=== PATIENT | male | born 1940 | race African-American/Black ===

== ENCOUNTER 2017-06-29 15:57 | Inpatient (IN) ==
[2017-06-29 16:45] LABS: Basophils % 0.2 % (0.0-0.8); Eosinophils % 0.1 % (0.00-10.9); Hemoglobin 13.1 GM/DL (14.0-18.0); Immature Granulocytes % 0.9 %; Immature Granulocytes Absolute 0.14 #; Lymphocytes # 2.6 10*3/uL (1.4-4.0); Lymphocytes % 16.3 % (21.2-54.2); Mean Corpuscular HGB Conc 32.8 GM/DL (32-36); Mean Corpuscular Hemoglobin 28 PG (27-34); Mean Corpuscular Volume 84.4 FL (87-102); Mean Platelet Volume 9.6 FL (9.6-12.0); Monocytes # 1.1 10*3/uL (0.11-0.8); Monocytes % 6.8 % (1.7-12.7); Neutrophils % 75.7 % (38.7-73.9); Platelet Count 173 T/CUMM (130-400); Red Blood Count 4.74 MC/CUMM (3.8-5.5); Red Cell Distribution Width 14.6 % (9.3-17.3); White Blood Count 15.8 T/CUMM (4-12)
[2017-06-29 16:51] LABS: INR 2.1
[2017-06-29 16:54] LABS: PT Patient Result 21.9 SECS
[2017-06-29 17:00] LABS: Lactic Acid 2.7 MMOL/L (0.4-2.0)
[2017-06-29 17:09] LABS: Alanine Aminotransferase 30 U/L (16-61); Albumin 3.2 G/DL (3.4-5.0); Alkaline Phosphatase 112 U/L (45-117); Aspartate Amino Transferase 32 U/L (0-37); Blood Urea Nitrogen 11 MG/DL (7-18); Calcium 8.2 MG/DL (8.5-10.1); Glucose 112 MG/DL (74-106); Osmolality,Calculated 272.8 MOS/KG (273-304); Potassium 3.6 MMOL/L (3.5-5.1); Sodium 137 MMOL/L (136-145); Total Protein 6.6 G/DL (6.4-8.3); Troponin I Only < 0.015 NG/ML (0.00-0.045)
[2017-06-29 17:20] LABS: INR 2.1; Partial Thromboplastin Time 35.7 SECS (0-40)
[2017-06-29] MEDS ORDERED: LEVOFLOXACIN INJ 500 MG in PREMIX 1 EACH IV SCH (17:30)
[2017-06-29 17:45] LABS: PT Patient Result 21.8 SECS
[2017-06-29] MEDS ORDERED: LEVOFLOXACIN INJ 100 ML IV ONE (18:22)
[2017-06-29 18:37] LABS: Apearance,Urine CLOUDY (Clear); Bacteria,Urine Moderate /HPF (Few); Bilirubin,Urine Negative (Negative); Blood, Urine Moderate mg/dL (Negative); Glucose,Urine (UA) Negative (Negative); Ketones,Urine 20 mg/dL (Negative); Nitrite,Urine Positive (Negative); Protein,Urine 30 MG/DL; RBC,Urine 14 /HPF (0-4); Urine Color Amber (Yellow); Urine Specific Gravity 1.017 (1.001-1.035); Urine Urobilinogen < 2.0 EU/DL (0.2-1.0); WBC,Urine 972 /HPF (0-6)
[2017-06-29] MEDS ORDERED: SODIUM CHLORIDE 0.9% 1,000 ML IV STA (19:40)
[2017-06-29] MEDS ORDERED: ONDANSETRON 4 MG/2 ML VIAL IV PRN (21:00)
[2017-06-29 21:14] LABS: Lymphocytes 18 % (20-55); Segmented Neutrophils 75 % (50-85); Total Cells Counted 100
[2017-06-29 21:15] LABS: Platelet Estimate Normal
[2017-06-29] MEDS: SODIUM CHLORIDE 0.9% 1,000 ML IV SCH (21:34)
[2017-06-29] MEDS: DOCUSATE SODIUM 100 MG CAPSULE PO SCH (21:36)
[2017-06-29 23:07] LABS: INR 1.9; PT Patient Result 19.9 SECS
[2017-06-30] MEDS: ACETAMINOPHEN 325 MG TABLET PO PRN (03:49)
[2017-06-30] MEDS: MORPHINE 2 MG/1 ML SYRINGE IV PRN ×2 (04:30→23:30)
[2017-06-30] MEDS ORDERED: ALPRAZolam 0.25 MG TABLET ONE (04:55)
[2017-06-30] MEDS ORDERED: ALPRAZolam 0.5 MG TABLET PO ONE (05:30)
[2017-06-30 05:31] LABS: Hematocrit 36.3 VOL% (42.0-52.0); Hemoglobin 11.9 GM/DL (14.0-18.0); Lymphocytes # 0.8 10*3/uL (1.4-4.0); Lymphocytes % 49.3 % (21.2-54.2); Mean Corpuscular HGB Conc 32.8 GM/DL (32-36); Mean Corpuscular Hemoglobin 28 PG (27-34); Monocytes % 1.3 % (1.7-12.7); Neutrophils # 0.8 10*3/uL (1.4-7.4); Neutrophils % 49.4 % (38.7-73.9); Platelet Count 125 T/CUMM (130-400); Red Blood Count 4.27 MC/CUMM (3.8-5.5); Red Cell Distribution Width 14.6 % (9.3-17.3); White Blood Count 1.5 T/CUMM (4-12)
[2017-06-30 05:50] LABS: Albumin 2.8 G/DL (3.4-5.0); Bilirubin,Total 2.9 MG/DL (0.2-1.0); Calcium 7.8 MG/DL (8.5-10.1); Lactic Acid 3.7 MMOL/L (0.4-2.0); Osmolality,Calculated 271.8 MOS/KG (273-304); Potassium 3.8 MMOL/L (3.5-5.1); Total Protein 5.8 G/DL (6.4-8.3)
[2017-06-30 05:53] LABS: Risk Ratio 2.5; VLDL CHOLESTEROL 14.8 MG/DL
[2017-06-30] MEDS ORDERED: MAGNESIUM SULF RIDER 2 GM in PREMIX 1 EACH IV PRN (06:01)
[2017-06-30] MEDS: SODIUM CHLORIDE 0.9% 1,000 ML IV SCH ×2 (06:01→20:48)
[2017-06-30] MEDS ORDERED: MAGNESIUM SULF RIDER 4 GM in PREMIX 1 EACH IV PRN (06:01)
[2017-06-30 06:07] LABS: Band Neutrophils 4 % (0-10); Burr Cells Few; Lymphocytes 55 % (20-55); Platelet Estimate Normal; Segmented Neutrophils 39 % (50-85); Total Cells Counted 100
[2017-06-30 06:51] LABS: Basophils % 0.1 % (0.0-0.8); Hematocrit 33.5 VOL% (42.0-52.0); Hemoglobin 11.5 GM/DL (14.0-18.0); Immature Granulocytes % 0.7 %; Immature Granulocytes Absolute 0.05 #; Lymphocytes # 0.5 10*3/uL (1.4-4.0); Lymphocytes % 7.4 % (21.2-54.2); Mean Corpuscular HGB Conc 34.3 GM/DL (32-36); Mean Corpuscular Hemoglobin 29 PG (27-34); Mean Corpuscular Volume 83.1 FL (87-102); Mean Platelet Volume 9.8 FL (9.6-12.0); Monocytes # 0.1 10*3/uL (0.11-0.8); Monocytes % 1.3 % (1.7-12.7); Neutrophils # 6.5 10*3/uL (1.4-7.4); Neutrophils % 90.5 % (38.7-73.9); Platelet Count 132 T/CUMM (130-400); Red Blood Count 4.03 MC/CUMM (3.8-5.5); Red Cell Distribution Width 14.8 % (9.3-17.3); White Blood Count 7.1 T/CUMM (4-12)
[2017-06-30 07:21] LABS: Lymphocytes 13 % (20-55); Platelet Estimate Decreased; Segmented Neutrophils 87 % (50-85); Total Cells Counted 100
[2017-06-30] MEDS ORDERED: FLUTICASONE 50 MCG NASAL SPRAY 16 GM BOTTLE BOTH NARES PRN (07:36)
[2017-06-30] MEDS ORDERED: METOPROLOL TARTRATE 25 MG TABLET PO SCH (09:00)
[2017-06-30] MEDS ORDERED: LOSARTAN 50 MG TABLET PO SCH (09:00)
[2017-06-30] MEDS ORDERED: amLODIPine 5 MG TABLET PO SCH (09:00)
[2017-06-30] MEDS: cefTRIAXone 1,000 MG in SYRINGE 1 EACH IV SCH (09:21)
[2017-06-30] MEDS: PANTOPRAZOLE 40 MG VIAL IV SCH (09:25)
[2017-06-30] MEDS: TAMSULOSIN 0.4 MG CAPSULE PO SCH ×2 (09:27→20:49)
[2017-06-30] MEDS: LEVOFLOXACIN INJ 500 MG in PREMIX 1 EACH IV SCH (09:28)
[2017-06-30] MEDS: DOCUSATE SODIUM 100 MG CAPSULE PO SCH ×2 (10:17→20:51)
[2017-06-30] MEDS ORDERED: ALBUTEROL/IPRATROPIUM 3 ML NEB RESP TX PRN (12:44)
[2017-06-30] MEDS: WARFARIN 5 MG TABLET PO SCH (17:30)
[2017-06-30 17:31] LABS: Apearance,Urine CLEAR (Clear); Bilirubin,Urine Negative (Negative); Blood, Urine Small mg/dL (Negative); Glucose,Urine (UA) Negative (Negative); Ketones,Urine Negative (Negative); Mucus,Urine Occasional /LPF (Occasional); Nitrite,Urine Negative (Negative); Protein,Urine Negative; RBC,Urine 1 /HPF (0-4); Urine Color Yellow (Yellow); Urine Specific Gravity 1.006 (1.001-1.035); Urine Urobilinogen < 2.0 EU/DL (0.2-1.0); WBC,Urine 9 /HPF (0-6)
[2017-06-30] MEDS: ALPRAZolam 0.25 MG TABLET PO PRN (20:49)
[2017-07-01] MEDS: MORPHINE 2 MG/1 ML SYRINGE IV PRN (00:30)
[2017-07-01] MEDS: SODIUM CHLORIDE 0.9% 1,000 ML IV SCH ×2 (01:00→18:20)
[2017-07-01 05:23] LABS: Basophils % 0.2 % (0.0-0.8); Eosinophils % 0.1 % (0.00-10.9); Hematocrit 37.6 VOL% (42.0-52.0); Hemoglobin 12.9 GM/DL (14.0-18.0); Immature Granulocytes % 0.8 %; Immature Granulocytes Absolute 0.11 #; Lymphocytes # 0.8 10*3/uL (1.4-4.0); Lymphocytes % 6.3 % (21.2-54.2); Mean Corpuscular HGB Conc 34.3 GM/DL (32-36); Mean Corpuscular Hemoglobin 29 PG (27-34); Mean Corpuscular Volume 83.7 FL (87-102); Mean Platelet Volume 9.5 FL (9.6-12.0); Monocytes # 0.9 10*3/uL (0.11-0.8); Monocytes % 6.8 % (1.7-12.7); Neutrophils # 11.1 10*3/uL (1.4-7.4); Neutrophils % 85.8 % (38.7-73.9); Platelet Count 151 T/CUMM (130-400); Red Blood Count 4.49 MC/CUMM (3.8-5.5); Red Cell Distribution Width 14.9 % (9.3-17.3)
[2017-07-01 05:47] LABS: Osmolality,Calculated 270.2 MOS/KG (273-304); Potassium 4.2 MMOL/L (3.5-5.1)
[2017-07-01 05:51] LABS: INR 1.5; PT Patient Result 15.9 SECS
[2017-07-01 06:41] LABS: Band Neutrophils 1 % (0-10); Eosinophils 1 % (0-10); Lymphocytes 5 % (20-55); Segmented Neutrophils 86 % (50-85); Total Cells Counted 100
[2017-07-01 06:42] LABS: Hypochromasia 1+; Platelet Estimate Adequate
[2017-07-01] MEDS: LEVOFLOXACIN INJ 500 MG in PREMIX 1 EACH IV SCH (09:04)
[2017-07-01] MEDS: PANTOPRAZOLE 40 MG VIAL IV SCH (09:05)
[2017-07-01] MEDS: TAMSULOSIN 0.4 MG CAPSULE PO SCH ×3 (09:05→21:27)
[2017-07-01] MEDS: DOCUSATE SODIUM 100 MG CAPSULE PO SCH ×3 (09:05→21:27)
[2017-07-01] MEDS: cefTRIAXone 1,000 MG in SYRINGE 1 EACH IV SCH (09:07)
[2017-07-01] MEDS: WARFARIN 5 MG TABLET PO SCH (17:17)
[2017-07-01] MEDS: ACETAMINOPHEN 325 MG TABLET PO PRN (17:17)
[2017-07-01] MEDS: CARBOXYMETHYLCELLULOSE 1% OPH SOLN BOTH EYES SCH (18:17)
[2017-07-01] MEDS: ALPRAZolam 0.25 MG TABLET PO PRN (21:27)
[2017-07-02 04:41] LABS: Basophils % 0.4 % (0.0-0.8); Eosinophils # 0.1 10*3/uL (0.0-0.87); Eosinophils % 1.2 % (0.00-10.9); Hematocrit 35.1 VOL% (42.0-52.0); Hemoglobin 11.6 GM/DL (14.0-18.0); Immature Granulocytes % 0.4 %; Immature Granulocytes Absolute 0.03 #; Lymphocytes # 0.9 10*3/uL (1.4-4.0); Lymphocytes % 11.4 % (21.2-54.2); Mean Corpuscular Hemoglobin 28 PG (27-34); Mean Corpuscular Volume 84.4 FL (87-102); Monocytes # 0.7 10*3/uL (0.11-0.8); Neutrophils % 77.6 % (38.7-73.9); Platelet Count 138 T/CUMM (130-400); Red Blood Count 4.16 MC/CUMM (3.8-5.5); Red Cell Distribution Width 14.8 % (9.3-17.3); White Blood Count 7.8 T/CUMM (4-12)
[2017-07-02 04:46] LABS: INR 1.6; PT Patient Result 16.4 SECS
[2017-07-02 05:05] LABS: Calcium 7.8 MG/DL (8.5-10.1); Osmolality,Calculated 277.4 MOS/KG (273-304); Potassium 3.9 MMOL/L (3.5-5.1)
[2017-07-02 05:09] LABS: Albumin 2.2 G/DL (3.4-5.0); Band Neutrophils 1 % (0-10); Bilirubin,Total 0.8 MG/DL (0.2-1.0); Calcium 7.9 MG/DL (8.5-10.1); Eosinophils 2 % (0-10); Lymphocytes 20 % (20-55); Osmolality,Calculated 275.5 MOS/KG (273-304); Platelet Estimate Normal; Potassium 3.9 MMOL/L (3.5-5.1); Segmented Neutrophils 71 % (50-85); Total Cells Counted 100; Total Protein 5.4 G/DL (6.4-8.3)
[2017-07-02 05:10] LABS: Atypical Lymphocytes Few
[2017-07-02] MEDS: LEVOFLOXACIN INJ 500 MG in PREMIX 1 EACH IV SCH (08:50)
[2017-07-02] MEDS: TAMSULOSIN 0.4 MG CAPSULE PO SCH ×2 (08:50→21:00)
[2017-07-02] MEDS: DOCUSATE SODIUM 100 MG CAPSULE PO SCH ×2 (08:50→20:59)
[2017-07-02] MEDS: PANTOPRAZOLE 40 MG VIAL IV SCH (08:50)
[2017-07-02] MEDS: SODIUM CHLORIDE 0.9% 1,000 ML IV SCH (13:03)
[2017-07-02] MEDS: ACETAMINOPHEN 325 MG TABLET PO PRN (17:19)
[2017-07-02] MEDS: WARFARIN 5 MG TABLET PO SCH (17:20)
[2017-07-02] MEDS: CARBOXYMETHYLCELLULOSE 1% OPH SOLN BOTH EYES SCH (18:27)
[2017-07-02] MEDS: ALPRAZolam 0.25 MG TABLET PO PRN (21:03)
[2017-07-03] MEDS: ACETAMINOPHEN 325 MG TABLET PO PRN ×3 (03:43→18:07)
[2017-07-03 04:59] LABS: Basophils % 0.3 % (0.0-0.8); Eosinophils # 0.1 10*3/uL (0.0-0.87); Eosinophils % 1.7 % (0.00-10.9); Hematocrit 34.9 VOL% (42.0-52.0); Hemoglobin 11.6 GM/DL (14.0-18.0); Immature Granulocytes % 0.5 %; Immature Granulocytes Absolute 0.04 #; Lymphocytes # 0.8 10*3/uL (1.4-4.0); Mean Corpuscular HGB Conc 33.2 GM/DL (32-36); Mean Corpuscular Hemoglobin 28 PG (27-34); Mean Corpuscular Volume 83.1 FL (87-102); Mean Platelet Volume 9.6 FL (9.6-12.0); Monocytes # 0.9 10*3/uL (0.11-0.8); Monocytes % 11.3 % (1.7-12.7); Neutrophils # 5.8 10*3/uL (1.4-7.4); Neutrophils % 76.2 % (38.7-73.9); Platelet Count 136 T/CUMM (130-400); Red Cell Distribution Width 14.6 % (9.3-17.3); White Blood Count 7.6 T/CUMM (4-12)
[2017-07-03 05:06] LABS: INR 1.5; PT Patient Result 15.2 SECS
[2017-07-03 05:23] LABS: Calcium 7.6 MG/DL (8.5-10.1); Osmolality,Calculated 273.7 MOS/KG (273-304); Potassium 3.6 MMOL/L (3.5-5.1)
[2017-07-03 05:27] LABS: Lymphocytes 13 % (20-55); Platelet Estimate Normal; Segmented Neutrophils 80 % (50-85); Total Cells Counted 100
[2017-07-03] MEDS: PANTOPRAZOLE 40 MG VIAL IV SCH (09:43)
[2017-07-03] MEDS: LEVOFLOXACIN INJ 500 MG in PREMIX 1 EACH IV SCH (09:43)
[2017-07-03] MEDS: TAMSULOSIN 0.4 MG CAPSULE PO SCH ×2 (09:43→20:33)
[2017-07-03] MEDS: DOCUSATE SODIUM 100 MG CAPSULE PO SCH ×2 (09:43→20:33)
[2017-07-03] MEDS: SODIUM CHLORIDE 0.9% 1,000 ML IV SCH (09:45)
[2017-07-03] MEDS: traMADol 50 MG TABLET PO PRN ×2 (11:40→19:45)
[2017-07-03] MEDS: LOSARTAN 50 MG TABLET PO SCH (18:08)
[2017-07-03] MEDS: WARFARIN 5 MG TABLET PO SCH (18:48)
[2017-07-03] MEDS: CARBOXYMETHYLCELLULOSE 1% OPH SOLN BOTH EYES SCH (20:33)
[2017-07-03] MEDS: METOPROLOL TARTRATE 25 MG TABLET PO SCH (20:33)
[2017-07-04] MEDS: SODIUM CHLORIDE 0.9% 1,000 ML IV SCH ×2 (06:17→13:40)
[2017-07-04] MEDS ORDERED: LIDOCAINE 2% TOP JELLY 20 ML VIAL INTRAURETH ONE (06:23)
[2017-07-04] MEDS: DOCUSATE SODIUM 100 MG CAPSULE PO SCH ×2 (09:19→21:22)
[2017-07-04] MEDS: TAMSULOSIN 0.4 MG CAPSULE PO SCH ×2 (09:19→21:21)
[2017-07-04] MEDS: METOPROLOL TARTRATE 25 MG TABLET PO SCH ×2 (09:19→21:22)
[2017-07-04] MEDS: traMADol 50 MG TABLET PO PRN ×2 (09:19→21:22)
[2017-07-04] MEDS: LEVOFLOXACIN INJ 500 MG in PREMIX 1 EACH IV SCH (09:21)
[2017-07-04] MEDS: PANTOPRAZOLE 40 MG VIAL IV SCH (09:22)
[2017-07-04 09:33] LABS: Basophils % 0.3 % (0.0-0.8); Eosinophils # 0.1 10*3/uL (0.0-0.87); Eosinophils % 2.3 % (0.00-10.9); Hemoglobin 11.4 GM/DL (14.0-18.0); Immature Granulocytes Absolute 0.06 #; Lymphocytes # 1.2 10*3/uL (1.4-4.0); Mean Corpuscular HGB Conc 33.5 GM/DL (32-36); Mean Corpuscular Hemoglobin 28 PG (27-34); Mean Corpuscular Volume 82.9 FL (87-102); Mean Platelet Volume 9.6 FL (9.6-12.0); Monocytes % 16.5 % (1.7-12.7); Neutrophils # 3.6 10*3/uL (1.4-7.4); Neutrophils % 59.9 % (38.7-73.9); Platelet Count 157 T/CUMM (130-400); Red Cell Distribution Width 14.7 % (9.3-17.3)
[2017-07-04 10:03] LABS: Band Neutrophils 1 % (0-10); Eosinophils 2 % (0-10); Lymphocytes 26 % (20-55); Segmented Neutrophils 61 % (50-85); Total Cells Counted 100
[2017-07-04 10:04] LABS: Hypochromasia 1+; Microcytosis 1+; Ovalocytes Slight; Platelet Estimate Adequate
[2017-07-04 10:55] LABS: Calcium 7.8 MG/DL (8.5-10.1); Osmolality,Calculated 275.4 MOS/KG (273-304); Potassium 3.6 MMOL/L (3.5-5.1)
[2017-07-04] MEDS: WARFARIN 5 MG TABLET PO SCH (17:55)
[2017-07-04] MEDS: CARBOXYMETHYLCELLULOSE 1% OPH SOLN BOTH EYES SCH (17:58)
[2017-07-04] MEDS: LOSARTAN 50 MG TABLET PO SCH (17:58)
[2017-07-05 05:43] LABS: Basophils % 0.3 % (0.0-0.8); Eosinophils # 0.1 10*3/uL (0.0-0.87); Eosinophils % 1.9 % (0.00-10.9); Hematocrit 34.9 VOL% (42.0-52.0); Hemoglobin 11.7 GM/DL (14.0-18.0); Immature Granulocytes % 0.8 %; Immature Granulocytes Absolute 0.05 #; Lymphocytes # 1.6 10*3/uL (1.4-4.0); Lymphocytes % 24.5 % (21.2-54.2); Mean Corpuscular HGB Conc 33.5 GM/DL (32-36); Mean Corpuscular Hemoglobin 28 PG (27-34); Mean Corpuscular Volume 82.7 FL (87-102); Monocytes # 1.1 10*3/uL (0.11-0.8); Monocytes % 16.8 % (1.7-12.7); Neutrophils # 3.6 10*3/uL (1.4-7.4); Neutrophils % 55.7 % (38.7-73.9); Platelet Count 169 T/CUMM (130-400); Red Blood Count 4.22 MC/CUMM (3.8-5.5); Red Cell Distribution Width 14.7 % (9.3-17.3); White Blood Count 6.5 T/CUMM (4-12)
[2017-07-05 06:03] LABS: Eosinophils 3 % (0-10); Hypochromasia 1+; Lymphocytes 22 % (20-55); Microcytosis 1+; Segmented Neutrophils 60 % (50-85); Total Cells Counted 100
[2017-07-05 06:13] LABS: Osmolality,Calculated 276.4 MOS/KG (273-304); Potassium 3.8 MMOL/L (3.5-5.1)
[2017-07-05] MEDS ORDERED: hydrALAZINE 20 MG/1 ML VIAL IV PRN (06:43)
[2017-07-05] MEDS: LEVOFLOXACIN INJ 500 MG in PREMIX 1 EACH IV SCH (09:13)
[2017-07-05] MEDS: SODIUM CHLORIDE 0.9% 1,000 ML IV SCH ×2 (09:13→21:32)
[2017-07-05] MEDS: LOSARTAN 50 MG TABLET PO SCH (10:13)
[2017-07-05] MEDS: DOCUSATE SODIUM 100 MG CAPSULE PO SCH ×2 (10:13→21:32)
[2017-07-05] MEDS: TAMSULOSIN 0.4 MG CAPSULE PO SCH ×2 (10:14→21:32)
[2017-07-05] MEDS: METOPROLOL TARTRATE 25 MG TABLET PO SCH ×2 (10:14→21:32)
[2017-07-05] MEDS: PANTOPRAZOLE 40 MG VIAL IV SCH (13:27)
[2017-07-05] MEDS: CARBOXYMETHYLCELLULOSE 1% OPH SOLN BOTH EYES SCH (17:13)
[2017-07-05] MEDS: ALPRAZolam 0.25 MG TABLET PO PRN (21:32)
[2017-07-06 05:00] LABS: Basophils % 0.3 % (0.0-0.8); Eosinophils # 0.2 10*3/uL (0.0-0.87); Eosinophils % 2.7 % (0.00-10.9); Hematocrit 34.9 VOL% (42.0-52.0); Hemoglobin 11.6 GM/DL (14.0-18.0); Immature Granulocytes % 0.9 %; Immature Granulocytes Absolute 0.06 #; Lymphocytes # 1.9 10*3/uL (1.4-4.0); Lymphocytes % 27.9 % (21.2-54.2); Mean Corpuscular HGB Conc 33.2 GM/DL (32-36); Mean Corpuscular Hemoglobin 28 PG (27-34); Mean Corpuscular Volume 82.7 FL (87-102); Mean Platelet Volume 9.1 FL (9.6-12.0); Monocytes # 0.9 10*3/uL (0.11-0.8); Monocytes % 12.8 % (1.7-12.7); Neutrophils # 3.8 10*3/uL (1.4-7.4); Neutrophils % 55.4 % (38.7-73.9); Platelet Count 207 T/CUMM (130-400); Red Blood Count 4.22 MC/CUMM (3.8-5.5); Red Cell Distribution Width 14.6 % (9.3-17.3); White Blood Count 6.8 T/CUMM (4-12)
[2017-07-06 05:27] LABS: Hypochromasia 1+; Microcytosis 1+; Platelet Estimate Normal
[2017-07-06 05:28] LABS: Calcium 7.9 MG/DL (8.5-10.1); Osmolality,Calculated 280.1 MOS/KG (273-304); Potassium 3.8 MMOL/L (3.5-5.1)
[2017-07-06] MEDS: LEVOFLOXACIN INJ 500 MG in PREMIX 1 EACH IV SCH (09:19)
[2017-07-06] MEDS: CYCLOBENZAPRINE 10 MG TABLET PO SCH ×2 (09:20→21:38)
[2017-07-06] MEDS: DOCUSATE SODIUM 100 MG CAPSULE PO SCH ×2 (09:21→21:38)
[2017-07-06] MEDS: LOSARTAN 50 MG TABLET PO SCH (09:21)
[2017-07-06] MEDS: METOPROLOL TARTRATE 25 MG TABLET PO SCH ×2 (09:21→21:38)
[2017-07-06] MEDS: PANTOPRAZOLE 40 MG VIAL IV SCH (09:21)
[2017-07-06] MEDS: TAMSULOSIN 0.4 MG CAPSULE PO SCH ×2 (09:21→21:42)
[2017-07-06] MEDS: CARBOXYMETHYLCELLULOSE 1% OPH SOLN BOTH EYES SCH (18:29)
[2017-07-06] MEDS: ACETAMINOPHEN 325 MG TABLET PO PRN (21:38)
[2017-07-07 05:32] LABS: Basophils % 0.3 % (0.0-0.8); Eosinophils # 0.2 10*3/uL (0.0-0.87); Eosinophils % 2.6 % (0.00-10.9); Hematocrit 34.9 VOL% (42.0-52.0); Hemoglobin 11.5 GM/DL (14.0-18.0); Immature Granulocytes Absolute 0.07 #; Lymphocytes # 2.3 10*3/uL (1.4-4.0); Lymphocytes % 31.4 % (21.2-54.2); Mean Corpuscular Hemoglobin 28 PG (27-34); Mean Corpuscular Volume 83.5 FL (87-102); Mean Platelet Volume 9.3 FL (9.6-12.0); Monocytes # 0.7 10*3/uL (0.11-0.8); Neutrophils # 4.1 10*3/uL (1.4-7.4); Neutrophils % 55.7 % (38.7-73.9); Platelet Count 249 T/CUMM (130-400); Red Blood Count 4.18 MC/CUMM (3.8-5.5); Red Cell Distribution Width 14.6 % (9.3-17.3); White Blood Count 7.3 T/CUMM (4-12)
[2017-07-07 05:57] LABS: Hypochromasia 1+
[2017-07-07 05:58] LABS: Microcytosis 1+; Ovalocytes Slight; Platelet Estimate Normal
[2017-07-07 06:08] LABS: Calcium 8.1 MG/DL (8.5-10.1)
[2017-07-07] MEDS: SODIUM CHLORIDE 0.9% 1,000 ML IV SCH (06:12)
[2017-07-07] MEDS ORDERED: NEOMYCIN/POLYMYXIN IRRIG SOLN 1 ML AMP BLADDERIRR ONE (08:10)
[2017-07-07] MEDS ORDERED: LACTATED RINGERS 1,000 ML IV SCH (08:30)
[2017-07-07] MEDS ORDERED: SEVOFLURANE 1 UNIT/15 MINUTE INH ONE (10:05)
[2017-07-07] MEDS ORDERED: fentaNYL 100 MCG/2 ML VIAL ONE (10:05)
[2017-07-07] MEDS ORDERED: PROPOFOL 200 MG/20 ML VIAL IV ONE (10:05)
[2017-07-07] MEDS ORDERED: ONDANSETRON 4 MG/2 ML VIAL ONE (10:06)
[2017-07-07] MEDS ORDERED: MIDAZOLAM 2 MG/2 ML VIAL ONE (10:06)
[2017-07-07] MEDS ORDERED: ePHEDrine 50 MG/ML AMP ONE (10:06)
[2017-07-07] MEDS ORDERED: GLYCOPYRROLATE 0.4 MG/2 ML VIAL ONE (10:06)
[2017-07-07] MEDS ORDERED: ROCURONIUM 100 MG/10 ML VIAL IV ONE (10:07)
[2017-07-07] MEDS ORDERED: SUCCINYLCHOLINE 200 MG/10 ML VIAL ONE (10:07)
[2017-07-07] MEDS ORDERED: NEOSTIGMINE 10 MG/10 ML VIAL ONE (10:07)
[2017-07-07 11:42] VITALS: BP 174/87
[2017-07-07] MEDS: DOCUSATE SODIUM 100 MG CAPSULE PO SCH (11:58)
[2017-07-07] MEDS: TAMSULOSIN 0.4 MG CAPSULE PO SCH (11:59)
[2017-07-07] MEDS: traMADol 50 MG TABLET PO PRN (11:59)
[2017-07-07] MEDS: CYCLOBENZAPRINE 10 MG TABLET PO SCH (11:59)
[2017-07-07] MEDS: PANTOPRAZOLE 40 MG VIAL IV SCH (12:00)
[2017-07-07] MEDS: METOPROLOL TARTRATE 25 MG TABLET PO SCH (12:00)
[2017-07-07] MEDS: LOSARTAN 50 MG TABLET PO SCH (12:00)
[2017-07-07] MEDS ORDERED: PHENAZOPYRIDINE 95 MG TABLET PO SCH (12:00)
[2017-07-07] MEDS: LEVOFLOXACIN INJ 500 MG in PREMIX 1 EACH IV SCH (12:01)
== END 2017-07-07 15:15 | disposition home or self-care (01) | DRG 854 ==
LOC: N.ED 15:57 → N.EDINP 18:53 → N.TELEN 19:38
PROVIDERS: ADMIT Family Medicine; ATTEND Family Medicine

== ENCOUNTER 2017-09-12 11:40 | Observation (INO) ==
[2017-09-12] MEDS ORDERED: SODIUM CHLORIDE 0.9% 1,000 ML IV STA (11:58)
[2017-09-12 12:02] LABS: Basophils % 0.3 % (0.0-0.8); Eosinophils # 0.3 10*3/uL (0.0-0.87); Eosinophils % 4.4 % (0.00-10.9); Hematocrit 44.8 VOL% (42.0-52.0); Hemoglobin 14.6 GM/DL (14.0-18.0); Immature Granulocytes % 0.3 %; Immature Granulocytes Absolute 0.02 #; Lymphocytes # 3.3 10*3/uL (1.4-4.0); Lymphocytes % 47.7 % (21.2-54.2); Mean Corpuscular HGB Conc 32.6 GM/DL (32-36); Mean Corpuscular Hemoglobin 27 PG (27-34); Mean Corpuscular Volume 83.9 FL (87-102); Mean Platelet Volume 8.7 FL (9.6-12.0); Monocytes # 0.6 10*3/uL (0.11-0.8); Monocytes % 9.3 % (1.7-12.7); Neutrophils # 2.6 10*3/uL (1.4-7.4); Platelet Count 183 T/CUMM (130-400); Red Blood Count 5.34 MC/CUMM (3.8-5.5); Red Cell Distribution Width 15.9 % (9.3-17.3); White Blood Count 6.9 T/CUMM (4-12)
[2017-09-12 12:18] LABS: Calcium 8.3 MG/DL (8.5-10.1); INR 1.1; PT Patient Result 11.6 SECS; Potassium 3.9 MMOL/L (3.5-5.1)
[2017-09-12] MEDS ORDERED: ALBUTEROL/IPRATROPIUM 3 ML NEB RESP TX STA ×3 (12:24→14:00)
[2017-09-12 12:26] LABS: Eosinophils 5 % (0-10); Lymphocytes 42 % (20-55); Segmented Neutrophils 50 % (50-85); Total Cells Counted 100
[2017-09-12 12:27] LABS: Hypochromasia 1+; Microcytosis Slight; Ovalocytes Slight; Platelet Estimate Normal
[2017-09-12] MEDS ORDERED: ALBUTEROL/IPRATROPIUM 3 ML NEB RESP TX SCH (12:30)
[2017-09-12 13:32] LABS: Apearance,Urine Slightly Hazy (Clear); Bilirubin,Urine Negative (Negative); Blood, Urine Negative (Negative); Glucose,Urine (UA) Negative (Negative); Hyaline Casts,Urine 6 /LPF (0-3); Ketones,Urine Negative (Negative); Mucus,Urine Occasional /LPF (Occasional); Nitrite,Urine Negative (Negative); Protein,Urine Negative; RBC,Urine 1 /HPF (0-4); Squamous Epithelial Cell,Urine Occasional /HPF (0-10); Urine Color Yellow (Yellow); Urine Specific Gravity 1.014 (1.001-1.035); Urine Urobilinogen < 2.0 EU/DL (0.2-1.0); WBC,Urine 15 /HPF (0-6)
[2017-09-12] MEDS ORDERED: ACETAMINOPHEN 325 MG TABLET PO PRN (15:35)
[2017-09-12] MEDS ORDERED: ONDANSETRON 4 MG/2 ML VIAL IV PRN (15:35)
[2017-09-12] MEDS: methylPREDNISolone SOD SUC 40 MG/1 ML VIAL IV SCH (17:12)
[2017-09-12] MEDS: SODIUM CHLORIDE 0.9% 1,000 ML IV SCH (17:13)
[2017-09-12] MEDS ORDERED: cefTRIAXone 500 MG in SYRINGE 1 EACH IV SCH (18:00)
[2017-09-12] MEDS ORDERED: WARFARIN 5 MG TABLET PO SCH (18:00)
[2017-09-12] MEDS: ALBUTEROL/IPRATROPIUM 3 ML NEB RESP TX SCH (19:42)
[2017-09-12] MEDS ORDERED: NON-FORMULARY MEDICATION (Ketotifen Fumarate [Zaditor] 1 DROP) BOTH EYES SCH (21:00)
[2017-09-12] MEDS: DOCUSATE SODIUM 100 MG CAPSULE PO SCH (21:04)
[2017-09-12] MEDS: METOPROLOL TARTRATE 25 MG TABLET PO SCH (21:04)
[2017-09-13] MEDS: ALBUTEROL/IPRATROPIUM 3 ML NEB RESP TX SCH ×4 (00:08→11:17)
[2017-09-13] MEDS: POLYVINYL ALCOHOL 1.4% OPH SOLN 15 ML BOTTLE BOTH EYES SCH ×2 (00:17→08:43)
[2017-09-13 05:08] LABS: INR 1.1; PT Patient Result 11.9 SECS
[2017-09-13 05:12] LABS: Calcium 7.9 MG/DL (8.5-10.1); Osmolality,Calculated 274.7 MOS/KG (273-304); Potassium 4.3 MMOL/L (3.5-5.1)
[2017-09-13] MEDS: methylPREDNISolone SOD SUC 40 MG/1 ML VIAL IV SCH (06:18)
[2017-09-13] MEDS: SODIUM CHLORIDE 0.9% 1,000 ML IV SCH (06:19)
[2017-09-13] MEDS: DOCUSATE SODIUM 100 MG CAPSULE PO SCH (08:44)
[2017-09-13] MEDS: METOPROLOL TARTRATE 25 MG TABLET PO SCH (08:45)
[2017-09-13] MEDS ORDERED: amLODIPine 5 MG TABLET PO SCH (09:00)
[2017-09-13] MEDS ORDERED: PANTOPRAZOLE 40 MG TABLET PO SCH (09:00)
[2017-09-13] MEDS ORDERED: MONTELUKAST 10 MG TABLET PO SCH (09:00)
[2017-09-13] MEDS ORDERED: AZELASTINE NASAL 137 MCG/SPRAY 30 ML BOTTLE BOTH NARES SCH (09:00)
[2017-09-13 11:25] VITALS: BP 123/66
== END 2017-09-13 15:00 | disposition home or self-care (01) ==
LOC: N.ED 11:40 → N.EDINP 11:40 → N.TELEN 15:30
PROVIDERS: ADMIT Family Medicine; ATTEND Family Medicine

== ENCOUNTER 2017-09-15 20:28 | Inpatient (IN) ==
[2017-09-15] MEDS ORDERED: ALBUTEROL/IPRATROPIUM 3 ML NEB RESP TX STA (21:48)
[2017-09-15 22:43] LABS: Basophils % 0.3 % (0.0-0.8); Eosinophils # 0.2 10*3/uL (0.0-0.87); Eosinophils % 2.3 % (0.00-10.9); Hematocrit 43.2 VOL% (42.0-52.0); Hemoglobin 14.1 GM/DL (14.0-18.0); Immature Granulocytes % 0.5 %; Immature Granulocytes Absolute 0.04 #; Lymphocytes # 3.1 10*3/uL (1.4-4.0); Lymphocytes % 35.4 % (21.2-54.2); Mean Corpuscular HGB Conc 32.6 GM/DL (32-36); Mean Corpuscular Hemoglobin 27 PG (27-34); Mean Corpuscular Volume 83.6 FL (87-102); Monocytes # 0.8 10*3/uL (0.11-0.8); Monocytes % 8.7 % (1.7-12.7); Neutrophils # 4.6 10*3/uL (1.4-7.4); Neutrophils % 52.8 % (38.7-73.9); Platelet Count 192 T/CUMM (130-400); Red Blood Count 5.17 MC/CUMM (3.8-5.5); Red Cell Distribution Width 15.6 % (9.3-17.3); White Blood Count 8.7 T/CUMM (4-12)
[2017-09-15 23:19] LABS: Blood Urea Nitrogen 11 MG/DL (7-18); Calcium 8.6 MG/DL (8.5-10.1); Glucose 92 MG/DL (74-106); Osmolality,Calculated 273.7 MOS/KG (273-304); Potassium 4.2 MMOL/L (3.5-5.1); Sodium 138 MMOL/L (136-145); Troponin I Only < 0.015 NG/ML (0.00-0.045)
[2017-09-16] MEDS ORDERED: LEVOFLOXACIN INJ 750 MG in PREMIX 1 EACH IV STA (00:06)
[2017-09-16] MEDS ORDERED: ONDANSETRON 4 MG/2 ML VIAL IV PRN (00:43)
[2017-09-16] MEDS ORDERED: ACETAMINOPHEN 325 MG TABLET PO PRN (00:43)
[2017-09-16] MEDS ORDERED: ALBUTEROL/IPRATROPIUM 3 ML NEB RESP TX PRN (00:50)
[2017-09-16] MEDS: LACTATED RINGERS 1,000 ML IV SCH ×3 (02:24→17:33)
[2017-09-16] MEDS ORDERED: ALBUTEROL 2.5 MG/3 ML NEB RESP TX PRN (10:12)
[2017-09-16] MEDS: FLUTICASONE 50 MCG NASAL SPRAY 16 GM BOTTLE BOTH NARES SCH (10:28)
[2017-09-16] MEDS: amLODIPine 5 MG TABLET PO SCH (10:28)
[2017-09-16] MEDS: AZELASTINE NASAL 137 MCG/SPRAY 30 ML BOTTLE BOTH NARES SCH (12:54)
[2017-09-16] MEDS: CARBOXYMETHYLCELLULOSE 1% OPH SOLN BOTH EYES SCH ×2 (15:48→20:49)
[2017-09-16] MEDS: PRIMIDONE 50 MG TABLET PO SCH ×2 (15:48→20:50)
[2017-09-16] MEDS: RIVAROXABAN 20 MG TABLET PO SCH (17:33)
[2017-09-16 19:13] LABS: Apearance,Urine CLEAR (Clear); Bilirubin,Urine Negative (Negative); Blood, Urine Negative (Negative); Glucose,Urine (UA) Negative (Negative); Ketones,Urine Negative (Negative); Mucus,Urine Occasional /LPF (Occasional); Nitrite,Urine Negative (Negative); Protein,Urine Negative; RBC,Urine <1 /HPF (0-4); Urine Color Straw (Yellow); Urine Specific Gravity 1.009 (1.001-1.035); Urine Urobilinogen < 2.0 EU/DL (0.2-1.0); WBC,Urine 3 /HPF (0-6)
[2017-09-16] MEDS: BENZONATATE 100 MG CAPSULE PO SCH (20:49)
[2017-09-16] MEDS: METOPROLOL TARTRATE 25 MG TABLET PO SCH (20:51)
[2017-09-16] MEDS ORDERED: NON-FORMULARY MEDICATION (Ketotifen Fumarate [Zaditor] 1 DROP) BOTH EYES SCH (21:00)
[2017-09-17] MEDS: LEVOFLOXACIN INJ 750 MG in PREMIX 1 EACH IV SCH (00:21)
[2017-09-17] MEDS: LACTATED RINGERS 1,000 ML IV SCH ×2 (02:30→13:45)
[2017-09-17 06:50] LABS: Basophils % 0.4 % (0.0-0.8); Eosinophils # 0.2 10*3/uL (0.0-0.87); Eosinophils % 2.6 % (0.00-10.9); Hematocrit 39.3 VOL% (42.0-52.0); Hemoglobin 12.6 GM/DL (14.0-18.0); Immature Granulocytes % 0.8 %; Immature Granulocytes Absolute 0.06 #; Lymphocytes # 2.4 10*3/uL (1.4-4.0); Lymphocytes % 32.8 % (21.2-54.2); Mean Corpuscular HGB Conc 32.1 GM/DL (32-36); Mean Corpuscular Hemoglobin 27 PG (27-34); Mean Corpuscular Volume 84.7 FL (87-102); Mean Platelet Volume 9.3 FL (9.6-12.0); Monocytes # 0.7 10*3/uL (0.11-0.8); Monocytes % 9.3 % (1.7-12.7); Neutrophils % 54.1 % (38.7-73.9); Platelet Count 202 T/CUMM (130-400); Red Blood Count 4.64 MC/CUMM (3.8-5.5); Red Cell Distribution Width 15.5 % (9.3-17.3); White Blood Count 7.3 T/CUMM (4-12)
[2017-09-17 07:32] LABS: Calcium 8.3 MG/DL (8.5-10.1); Osmolality,Calculated 276.4 MOS/KG (273-304); Potassium 4.4 MMOL/L (3.5-5.1)
[2017-09-17] MEDS: HYDROcodone/CHLORPHENIRAMINE ER 5 ML UDCUP PO PRN ×2 (10:20→21:00)
[2017-09-17] MEDS: PRIMIDONE 50 MG TABLET PO SCH ×3 (10:21→20:57)
[2017-09-17] MEDS: amLODIPine 5 MG TABLET PO SCH (10:21)
[2017-09-17] MEDS: METOPROLOL TARTRATE 25 MG TABLET PO SCH ×2 (10:21→20:57)
[2017-09-17] MEDS: MONTELUKAST 10 MG TABLET PO SCH (10:21)
[2017-09-17] MEDS: CARBOXYMETHYLCELLULOSE 1% OPH SOLN BOTH EYES SCH ×3 (10:22→21:09)
[2017-09-17] MEDS: AZELASTINE NASAL 137 MCG/SPRAY 30 ML BOTTLE BOTH NARES SCH (10:23)
[2017-09-17] MEDS: FLUTICASONE 50 MCG NASAL SPRAY 16 GM BOTTLE BOTH NARES SCH (10:23)
[2017-09-17] MEDS: BENZONATATE 100 MG CAPSULE PO SCH ×3 (10:23→20:56)
[2017-09-17] MEDS: RIVAROXABAN 20 MG TABLET PO SCH (16:59)
[2017-09-18] MEDS: LEVOFLOXACIN INJ 750 MG in PREMIX 1 EACH IV SCH (01:00)
[2017-09-18 07:24] LABS: Osmolality,Calculated 276.4 MOS/KG (273-304); Potassium 4.2 MMOL/L (3.5-5.1)
[2017-09-18] MEDS: PRIMIDONE 50 MG TABLET PO SCH ×3 (09:12→20:08)
[2017-09-18] MEDS: CARBOXYMETHYLCELLULOSE 1% OPH SOLN BOTH EYES SCH ×3 (09:12→20:09)
[2017-09-18] MEDS: AZELASTINE NASAL 137 MCG/SPRAY 30 ML BOTTLE BOTH NARES SCH (09:12)
[2017-09-18] MEDS: MONTELUKAST 10 MG TABLET PO SCH (09:12)
[2017-09-18] MEDS: METOPROLOL TARTRATE 25 MG TABLET PO SCH ×2 (09:12→20:08)
[2017-09-18] MEDS: amLODIPine 5 MG TABLET PO SCH (09:12)
[2017-09-18] MEDS: FLUTICASONE 50 MCG NASAL SPRAY 16 GM BOTTLE BOTH NARES SCH (09:12)
[2017-09-18] MEDS: BENZONATATE 100 MG CAPSULE PO SCH ×3 (09:13→20:08)
[2017-09-18] MEDS: HYDROcodone/CHLORPHENIRAMINE ER 5 ML UDCUP PO PRN ×2 (09:13→22:06)
[2017-09-18] MEDS: RIVAROXABAN 20 MG TABLET PO SCH (17:21)
[2017-09-18] MEDS: LACTATED RINGERS 1,000 ML IV SCH ×3 (19:20→19:22)
[2017-09-19] MEDS: LEVOFLOXACIN INJ 750 MG in PREMIX 1 EACH IV SCH (01:42)
[2017-09-19] MEDS: CARBOXYMETHYLCELLULOSE 1% OPH SOLN BOTH EYES SCH (09:23)
[2017-09-19] MEDS: MONTELUKAST 10 MG TABLET PO SCH (09:23)
[2017-09-19] MEDS: BENZONATATE 100 MG CAPSULE PO SCH (09:23)
[2017-09-19] MEDS: HYDROcodone/CHLORPHENIRAMINE ER 5 ML UDCUP PO PRN (09:23)
[2017-09-19] MEDS: METOPROLOL TARTRATE 25 MG TABLET PO SCH (09:23)
[2017-09-19] MEDS: amLODIPine 5 MG TABLET PO SCH (09:23)
[2017-09-19] MEDS: PRIMIDONE 50 MG TABLET PO SCH (09:23)
[2017-09-19] MEDS: FLUTICASONE 50 MCG NASAL SPRAY 16 GM BOTTLE BOTH NARES SCH (09:24)
[2017-09-19] MEDS: AZELASTINE NASAL 137 MCG/SPRAY 30 ML BOTTLE BOTH NARES SCH (09:24)
[2017-09-19 11:57] VITALS: BP 148/80
== END 2017-09-19 15:05 | disposition home or self-care (01) | DRG 203 ==
LOC: N.ED 20:28 → N.EDINP 09-16 00:43 → N.2E 09-16 01:55
PROVIDERS: ADMIT Family Medicine; ATTEND Family Medicine

== ENCOUNTER 2021-02-22 02:48 | Observation (INO) ==
[2021-02-22 04:25] LABS: Basophils % 0.4 % (0.0-0.8); Eosinophils # 0.2 10*3/uL (0.0-0.87); Eosinophils % 3.3 % (0.00-10.9); Hematocrit 38.4 VOL% (42.0-52.0); Hemoglobin 12.3 GM/DL (14.0-18.0); Immature Granulocytes % 0.3 %; Immature Granulocytes Absolute 0.02 #; Lymphocytes # 2.2 10*3/uL (1.4-4.0); Lymphocytes % 32.7 % (21.2-54.2); Mean Corpuscular Volume 87.9 FL (87-102); Mean Platelet Volume 9.2 FL (9.6-12.0); Monocytes % 8.8 % (1.7-12.7); Neutrophils % 54.5 % (38.7-73.9); Platelet Count 185 T/CUMM (130-400); Red Blood Count 4.37 MC/CUMM (3.8-5.5); Red Cell Distribution Width 13.9 % (9.3-17.3); White Blood Count 6.7 T/CUMM (4-12)
[2021-02-22 04:54] LABS: Albumin 3.3 G/DL (3.4-5.0); Bilirubin,Total 1.2 MG/DL (0.20-1.00); Osmolality,Calculated 282.3 MOS/KG (273-304); Potassium 3.8 MMOL/L (3.5-5.1); Total Protein 7.2 G/DL (6.4-8.2)
[2021-02-22] MEDS ORDERED: amLODIPine 5 MG TABLET PO SCH (09:00)
[2021-02-22 13:12] VITALS: BP 139/76
[2021-02-22] MEDS ORDERED: MORPHINE 2 MG/1 ML SYRINGE IV SCH (14:30)
== END 2021-02-22 13:00 | disposition home or self-care (01) ==
LOC: SUATTDRO → EDBD → EDUNIT# → N.EDINP 02:48 → N.ED 02:48 → N.EDINP 13:12
PROVIDERS: ADMIT Emergency Medicine; ATTEND Emergency Medicine